=== PATIENT | male | born 1950 | race Caucasian/White ===

== ENCOUNTER 2016-08-23 14:16 | Inpatient (IN) | payer OTHER, MEDICARE ==
[~2016-08-23] VITALS: Ht 180.3 cm; Wt 85.9 kg
[2016-08-24] MEDS ORDERED: DOXA1TAB36 PO (08:23)
[2016-08-24] MEDS ORDERED: TIMO5SOL EACH EYE (08:23)
[2016-08-24] MEDS ORDERED: ALPH0.1S EACH EYE (08:23)
[2016-08-24] MEDS ORDERED: LATA0.002 EACH EYE (08:23)
[2016-08-26] VITALS (7 sets, daily range): BP systolic 127–144; BP diastolic 68–75; PULSE 66–76; RESP 16–18; TEMP 97.3–98.2; O2SAT 98–99
[2016-08-26] MEDS ORDERED: NEOSTIGMINE 3 MG/3 ML SYR IV ONE (12:00)
[2016-08-26] MEDS ORDERED: LACTATED RINGER'S 1000 ML INJ 1,000 ML IV ONE (12:00)
[2016-08-26] MEDS ORDERED: ONDANSETRON HCL 4 MG/2 ML VIAL IV PUSH ONE (12:00)
[2016-08-26] MEDS ORDERED: PROPOFOL 200 MG/20 ML AMP IV ONE (12:00)
[2016-08-26] MEDS ORDERED: ALVIMOPAN 12 MG CAPSULE - On Call PO SCH (12:45)
[2016-08-26] MEDS ORDERED: METRONIDAZOLE 500 MG/100 ML ISONTONIC SOLN IV SCH (12:45)
[2016-08-26] MEDS ORDERED: INSULIN HUMAN REGULAR 1,000 UNITS/10 ML VIAL SQ PRN (12:45)
[2016-08-26] MEDS ORDERED: METOPROLOL TARTRATE 25 MG TAB PO PRN (12:45)
[2016-08-26] MEDS ORDERED: CHLORHEXIDINE GLUCONATE 2 % 1 PACK (2 CLOTHS) TOPICAL PRN (12:45)
[2016-08-26] MEDS ORDERED: SODIUM CHLORID 0.9% 500 ML IV PRN (12:45)
[2016-08-26] MEDS ORDERED: LACTATED RINGER'S 1000 ML IV PRN (12:45)
[2016-08-26] MEDS ORDERED: ceFAZolin 1,000 MG/NS 100 ML IV SCH ×2 (12:45)
[2016-08-26] MEDS ORDERED: POVIDONE IODINE 5% (ANTISEPSIS KIT) 4 APPLICATIONS EACH NARE PRN (12:45)
[2016-08-26] MEDS ORDERED: ACETAMINOPHEN 1000 MG/100 ML VIAL IV ONE (13:26)
[2016-08-26] MEDS ORDERED: FAMOTIDINE 20 MG/2 ML VIAL ONE (13:26)
[2016-08-26] MEDS ORDERED: fentaNYL CITRATE 250 MCG/5 ML AMP ONE ×2 (13:27→15:54)
[2016-08-26] MEDS ORDERED: MIDAZOLAM HCL 2 MG/2 ML VIAL ONE (13:27)
[2016-08-26] MEDS ORDERED: HYDROmorphone HCL PF 2 MG/ML VIAL ONE (13:27)
[2016-08-26] MEDS ORDERED: RESP: ALBUTEROL 2.5 MG/3 ML NEB (SCH) ONE (13:43)
[2016-08-26] MEDS ORDERED: SUGAMMADEX SODIUM 200 MG/2 ML VIAL IV PUSH ONE ×2 (14:58)
[2016-08-26] MEDS ORDERED: *morphine SULFATE 8 MG/ML PERIprocedure ONLY ONE (15:53)
[2016-08-26] MEDS: D5-LR + KCL 20 MEQ INJ 1,000 ML IV SCH ×2 (15:56→21:06)
[2016-08-26] MEDS ORDERED: NALOXONE HCL 0.4 MG/ML AMP IV PRN (16:00)
[2016-08-26] MEDS ORDERED: ONDANSETRON HCL 4 MG/2 ML VIAL IV PRN (16:00)
[2016-08-26] MEDS: PCA - TOTAL MG MORPHINE DELIVERED PER SHIFT SCH ×2 (16:00→21:46)
[2016-08-26] MEDS ORDERED: ACETAMINOPHEN/HYDROcodone 325 MG/5 MG TAB PO PRN (16:00)
[2016-08-26] MEDS ORDERED: Post-op Orders (for Pharmacy) MISC XX ONE (16:00)
[2016-08-26] MEDS ORDERED: SODIUM CHLORIDE 0.9% FLUSH 10 ML FLUSH IV FLUSH PRN (16:00)
[2016-08-26] MEDS ORDERED: ENALAPRILAT 1.25 MG/ML VIAL IV PRN (16:00)
[2016-08-26] MEDS ORDERED: ZOLPIDEM TARTRATE 5 MG TAB PO PRN (16:00)
[2016-08-26] MEDS ORDERED: POTASSIUM CHLOR 40 MEQ PREMIX 100 ML IV PRN (16:00)
[2016-08-26] MEDS ORDERED: BENZOCAINE 6 MG/MENTHOL 10 MG LOZENGE BUCCAL PRN (16:00)
[2016-08-26] MEDS ORDERED: POTASSIUM CHLOR 20 MEQ PREMIX 100 ML IV PRN (16:00)
[2016-08-26] MEDS: MORPHINE SULFATE 30 MG/30 ML PCA IV SCH ×2 (16:16→23:51)
[2016-08-26] MEDS: ceFAZolin 2 GM PREMIX 50 ML IV SCH (16:39)
[2016-08-26] MEDS: KETOROLAC TROMETHAMINE 30 MG/ML (IVP) VIAL IVP PRN (16:49)
[2016-08-26 16:53] LABS: AUTOMATED NEUTROPHIL # 19.2 TH/MM3 (1.8-7.7); BASOPHIL # 0.1 TH/MM3 (0-0.2); BASOPHIL % 0.5 % (0.0-2.0); EOSINOPHIL # 0.2 TH/MM3 (0-0.4); HEMATOCRIT 40.3 % (39.0-51.0); HEMO FLAGS DIFF FINAL; LYMPH % 3.9 % (9.0-44.0); LYMPHOCYTE # 0.8 TH/MM3 (1.0-4.8); MEAN CELL VOLUME 92.1 FL (80.0-100.0); MEAN CORPUSCULAR HEMOGLOBIN 30.8 PG (27.0-34.0); MEAN CORPUSCULAR HGB CONC 33.4 % (32.0-36.0); MONO % 2.1 % (0.0-8.0); NEUT % 92.5 % (16.0-70.0); PLATELET COUNT 271 TH/MM3 (150-450); RED BLOOD COUNT 4.38 MIL/MM3 (4.50-5.90); RED CELL DISTRIBUTION WIDTH 14.6 % (11.6-17.2); WHITE BLOOD COUNT 20.7 TH/MM3 (4.0-11.0)
[2016-08-26 17:16] LABS: BICARBONATE 23.7 MEQ/L (21.0-32.0)
[2016-08-26] MEDS: METOCLOPRAMIDE HCL 10 MG/2 ML VIAL IVS SCH (17:47)
[2016-08-26] MEDS: DEXT 5%-NACL 0.9% 1000 ML INJ 1,000 ML IV SCH (17:51)
[2016-08-26] MEDS: SODIUM CHLORIDE 0.9% FLUSH 10 ML FLUSH IV FLUSH SCH (21:00)
[2016-08-26] MEDS: BRIMONIDINE TARTRATE 0.15% OPHT SOLN 5 ML BTL EACH EYE SCH (21:00)
[2016-08-26] MEDS: TIMOLOL MALEATE 0.25% OPHT SOLN 5 ML BTL EACH EYE SCH (21:00)
[2016-08-26] MEDS: LATANOPROST 0.005% OPHT SOLN 2.5 ML BTL EACH EYE SCH (21:00)
[2016-08-26] MEDS: DOXAZOSIN MESYLATE 1 MG TAB PO SCH (21:05)
[2016-08-26] MEDS: FUROSEMIDE 20 MG/2 ML VIAL IV SCH (21:06)
[2016-08-26] MEDS: metroNIDAZOLE 500 MG INJ 100 ML IV SCH (21:07)
[2016-08-27] VITALS (21 sets, daily range): BP systolic 107–137; BP diastolic 48–78; PULSE 60–82; RESP 14–18; TEMP 97.8–98.5; O2SAT 92–99
[2016-08-27] MEDS: KETOROLAC TROMETHAMINE 30 MG/ML (IVP) VIAL IVP PRN ×3 (01:10→11:23)
[2016-08-27] MEDS: METOCLOPRAMIDE HCL 10 MG/2 ML VIAL IVS SCH ×5 (01:11→23:13)
[2016-08-27] MEDS: ceFAZolin 2 GM PREMIX 50 ML IV SCH ×2 (01:11→08:25)
[2016-08-27] MEDS: DEXT 5%-NACL 0.9% 1000 ML INJ 1,000 ML IV SCH ×4 (04:17→17:54)
[2016-08-27] MEDS: D5-LR + KCL 20 MEQ INJ 1,000 ML IV SCH ×2 (05:48→10:22)
[2016-08-27] MEDS: metroNIDAZOLE 500 MG INJ 100 ML IV SCH ×2 (05:48→11:23)
[2016-08-27] MEDS: PCA - TOTAL MG MORPHINE DELIVERED PER SHIFT SCH ×3 (05:55→23:30)
[2016-08-27 06:58] LABS: AUTOMATED NEUTROPHIL # 11.6 TH/MM3 (1.8-7.7); BASOPHIL # 0.1 TH/MM3 (0-0.2); BASOPHIL % 0.7 % (0.0-2.0); HEMO FLAGS DIFF FINAL; LYMPH % 8.3 % (9.0-44.0); LYMPHOCYTE # 1.2 TH/MM3 (1.0-4.8); MEAN CELL VOLUME 92.1 FL (80.0-100.0); MEAN CORPUSCULAR HEMOGLOBIN 31.5 PG (27.0-34.0); MEAN CORPUSCULAR HGB CONC 34.2 % (32.0-36.0); MONO % 9.8 % (0.0-8.0); NEUT % 81.2 % (16.0-70.0); PLATELET COUNT 251 TH/MM3 (150-450); RED BLOOD COUNT 4.02 MIL/MM3 (4.50-5.90); RED CELL DISTRIBUTION WIDTH 14.6 % (11.6-17.2); WHITE BLOOD COUNT 14.2 TH/MM3 (4.0-11.0)
[2016-08-27 07:27] LABS: BICARBONATE 25.3 MEQ/L (21.0-32.0); POTASSIUM 3.9 MEQ/L (3.5-5.1)
[2016-08-27] MEDS: TIMOLOL MALEATE 0.25% OPHT SOLN 5 ML BTL EACH EYE SCH ×2 (08:18→21:00)
[2016-08-27] MEDS: BRIMONIDINE TARTRATE 0.15% OPHT SOLN 5 ML BTL EACH EYE SCH ×2 (08:18→21:00)
[2016-08-27] MEDS: ALVIMOPAN 12 MG CAPSULE - Post-op dosing PO SCH ×2 (08:24→21:00)
[2016-08-27] MEDS: PANTOPRAZOLE SODIUM 40 MG VIAL IVP SCH (08:24)
[2016-08-27] MEDS: FUROSEMIDE 20 MG/2 ML VIAL IV SCH ×2 (08:24→21:48)
[2016-08-27] MEDS: SODIUM CHLORIDE 0.9% FLUSH 10 ML FLUSH IV FLUSH SCH ×2 (08:25→21:45)
[2016-08-27] MEDS: ACETAMINOPHEN/HYDROcodone 325 MG/5 MG TAB PO PRN ×2 (08:25→21:46)
--- NOTE | 2016-08-27 15:19 | HHI.PR ---
Subjective Remarks No N or V. Pain controlled. Objective Vital Signs Date Time Temp Pulse Resp B/P Pulse Ox O2 Delivery O2 Flow Rate FiO2 08/27/16 12:58 20 08/27/16 12:24 16 08/27/16 12:00 67 08/27/16 12:00 98.2 64 16 137/67 99 08/27/16 11:00 82 08/27/16 10:00 68 08/27/16 09:17 16 08/27/16 09:00 62 08/27/16 08:11 99 Nasal Cannula 1.00 08/27/16 08:00 63 08/27/16 08:00 97.8 78 18 130/77 98 08/27/16 07:00 60 08/27/16 06:00 66 08/27/16 05:55 18 08/27/16 05:00 68 08/27/16 04:30 98.5 77 133/78 98 08/27/16 04:00 66 08/27/16 03:00 65 08/27/16 02:00 68 08/27/16 01:28 16 08/27/16 01:00 70 08/27/16 00:00 98.3 69 136/76 98 08/27/16 00:00 74 08/26/16 23:51 18 08/26/16 23:00 70 08/26/16 22:00 68 08/26/16 21:46 18 08/26/16 21:00 66 08/26/16 20:00 72 08/26/16 20:00 97.3 72 139/75 98 08/26/16 19:00 72 08/26/16 18:00 76 08/26/16 18:00 98.2 74 16 144/68 98 08/26/16 18:00 75 08/26/16 17:30 98.3 75 13 137/77 97 Nasal Cannula 2 08/26/16 17:00 71 12 145/79 97 Nasal Cannula 2 08/26/16 16:45 73 12 137/77 97 Nasal Cannula 2 08/26/16 16:30 75 14 155/81 97 Nasal Cannula 2 08/26/16 16:16 15 08/26/16 16:15 70 12 158/80 98 Nasal Cannula 2 08/26/16 16:00 77 15 158/83 98 Nasal Cannula 2 08/26/16 15:45 79 20 173/88 99 Nasal Cannula 2 08/26/16 15:41 98.0 76 15 174/90 100 Nasal Cannula 2 I/O 08/26/16 08/26/16 08/26/16 08/27/16 08/27/16 08/27/16 07:00 15:00 23:00 07:00 15:00 23:00 Intake Total 1400 ml 240 ml Output Total 575 ml 1000 ml Balance 825 ml -760 ml Intake Oral 240 ml Other 1400 ml Output Urine Total 75 ml 1000 ml Drainage Total 150 ml Estimated Blood Loss 100 ml Other 250 ml Result Diagram: 08/27/16 0625 08/27/1625 Objective Remarks VS-S Abd: flat,binder in place-cut to fit better I&Os- OK Labs- OK Assessment and Plan Assessment and Plan Stable POD#1 Started CLD. FLD ordered for tomorrow. D/C chávez tomorrow. Remove dressing tomorrow.Transfer to [address] [place] [address]. D/C tele. D/C dressing and RODBUSTER tomorrow. Te Newman MD Aug 27, 2016 15:19
[2016-08-27] MEDS: LATANOPROST 0.005% OPHT SOLN 2.5 ML BTL EACH EYE SCH (21:00)
[2016-08-27] MEDS: DOXAZOSIN MESYLATE 1 MG TAB PO SCH (21:45)
[2016-08-27] MEDS: ALVIMOPAN 12 MG CAPSULE PO SCH (21:47)
[2016-08-27] MEDS: MORPHINE SULFATE 30 MG/30 ML PCA IV SCH (23:16)
[2016-08-28] VITALS: BP 133/73; PULSE 69; RESP 20; TEMP 97.3; O2SAT 94
[2016-08-28 04:00] VITALS: BP 141/82; PULSE 60; RESP 20; TEMP 97.5; O2SAT 95
[2016-08-28] MEDS: DEXT 5%-NACL 0.9% 1000 ML INJ 1,000 ML IV SCH ×3 (04:45→20:45)
[2016-08-28] MEDS: PCA - TOTAL MG MORPHINE DELIVERED PER SHIFT SCH (06:00)
[2016-08-28] MEDS: METOCLOPRAMIDE HCL 10 MG/2 ML VIAL IVS SCH ×3 (06:30→17:38)
[2016-08-28 07:01] LABS: AUTOMATED NEUTROPHIL # 6.9 TH/MM3 (1.8-7.7); BASOPHIL # 0.1 TH/MM3 (0-0.2); EOSINOPHIL # 0.2 TH/MM3 (0-0.4); EOSINOPHIL % 1.6 % (0.0-4.0); HEMATOCRIT 34.6 % (39.0-51.0); HEMO FLAGS DIFF FINAL; LYMPH % 18.6 % (9.0-44.0); LYMPHOCYTE # 1.9 TH/MM3 (1.0-4.8); MEAN CELL VOLUME 92.7 FL (80.0-100.0); MEAN CORPUSCULAR HEMOGLOBIN 31.2 PG (27.0-34.0); MEAN CORPUSCULAR HGB CONC 33.7 % (32.0-36.0); MONO % 9.7 % (0.0-8.0); NEUT % 69.1 % (16.0-70.0); PLATELET COUNT 225 TH/MM3 (150-450); RED BLOOD COUNT 3.73 MIL/MM3 (4.50-5.90); RED CELL DISTRIBUTION WIDTH 14.9 % (11.6-17.2)
[2016-08-28 07:12] LABS: BICARBONATE 28.1 MEQ/L (21.0-32.0); POTASSIUM 4.1 MEQ/L (3.5-5.1)
[2016-08-28] MEDS: PANTOPRAZOLE SODIUM 40 MG VIAL IVP SCH (07:27)
[2016-08-28] MEDS: D5-LR + KCL 20 MEQ INJ 1,000 ML IV SCH ×2 (07:27→17:39)
[2016-08-28] MEDS: ALVIMOPAN 12 MG CAPSULE - Post-op dosing PO SCH ×2 (07:28→21:00)
[2016-08-28] MEDS: ALVIMOPAN 12 MG CAPSULE PO SCH ×2 (07:28→22:10)
[2016-08-28] MEDS: FUROSEMIDE 20 MG/2 ML VIAL IV SCH ×2 (07:28→22:10)
[2016-08-28] MEDS: ACETAMINOPHEN/HYDROcodone 325 MG/5 MG TAB PO PRN ×4 (07:28→22:08)
[2016-08-28] MEDS: SODIUM CHLORIDE 0.9% FLUSH 10 ML FLUSH IV FLUSH SCH ×2 (07:29→21:00)
[2016-08-28] MEDS: BRIMONIDINE TARTRATE 0.15% OPHT SOLN 5 ML BTL EACH EYE SCH ×2 (07:30→21:00)
[2016-08-28] MEDS: TIMOLOL MALEATE 0.25% OPHT SOLN 5 ML BTL EACH EYE SCH ×2 (07:30→21:00)
[2016-08-28 08:00] VITALS: BP 160/77; PULSE 68; RESP 17; TEMP 97; O2SAT 94
[2016-08-28 12:00] VITALS: BP 125/70; PULSE 56; RESP 17; TEMP 97.4; O2SAT 96
--- NOTE | 2016-08-28 12:52 | HHI.PR ---
Subjective Remarks POD#2 s/p sigmoid colectomy Comfortable Objective Vital Signs Date Time Temp Pulse Resp B/P Pulse Ox O2 Delivery O2 Flow Rate FiO2 08/28/16 12:00 97.4 56 17 125/70 96 08/28/16 08:00 97.0 68 17 160/77 94 08/28/16 06:00 16 08/28/16 04:00 97.5 60 20 141/82 95 08/28/16 00:00 97.3 69 20 133/73 94 08/27/16 23:30 14 08/27/16 23:16 14 08/27/16 23:00 98.5 69 14 107/69 92 08/27/16 19:00 98.4 65 14 118/70 97 08/27/16 16:00 97.9 65 16 112/48 97 08/27/16 16:00 61 08/27/16 15:00 72 08/27/16 14:00 64 08/27/16 13:00 80 08/27/16 12:58 20 I/O 08/27/16 08/27/16 08/27/16 08/28/16 08/28/16 08/28/16 07:00 15:00 23:00 07:00 15:00 23:00 Intake Total 240 ml 2441 ml 967 ml Output Total 1000 ml 780 ml 650 ml Balance -760 ml 1661 ml 317 ml Intake Oral 240 ml 1420 ml 120 ml IV Total 1021 ml 847 ml Output Urine Total 1000 ml 720 ml 600 ml Drainage Total 60 ml 50 ml # Bowel Movements 0 Result Diagram: 08/28/16 0520 08/28/16 0520 Objective Remarks Abdomen soft, nondistended, tender MILAGROS serosanguinous Assessment and Plan Assessment and Plan Doing well Mobilize Advance diet, decrease IVF Chantel Ballard MD Aug 28, 2016 12:52
[2016-08-28 20:00] VITALS: BP 139/76; PULSE 59; RESP 20; TEMP 97.2; O2SAT 97
[2016-08-28] MEDS: LATANOPROST 0.005% OPHT SOLN 2.5 ML BTL EACH EYE SCH (21:00)
[2016-08-28] MEDS: DOXAZOSIN MESYLATE 1 MG TAB PO SCH (22:09)
[2016-08-29] VITALS: BP 126/66; PULSE 59; RESP 20; TEMP 96.9; O2SAT 95
[2016-08-29] MEDS: D5-LR + KCL 20 MEQ INJ 1,000 ML IV SCH (01:16)
[2016-08-29] MEDS: DEXT 5%-NACL 0.9% 1000 ML INJ 1,000 ML IV SCH ×3 (04:45→20:45)
--- NOTE | 2016-08-29 05:41 | MP ---
cc: TAVON LIAO,ANDREW VAZQUEZ,RAMAN TUBBS D.O. DATE OF SURGERY: 08/26/2016 PREOPERATIVE DIAGNOSIS Sigmoid colon carcinoma. POSTOPERATIVE DIAGNOSIS Sigmoid colon carcinoma. PROCEDURE Sigmoid colectomy low anterior resection. ANESTHESIA General endotracheal anesthesia. SURGEON Dr. Newman. MANAGER BUILDING Dr. Winn. ESTIMATED BLOOD LOSS 25 cc OPERATING TIME One hour, five minutes. OPERATIVE FINDINGS This patient was found to have a sigmoid colon carcinoma on colonoscopy by Dr. Tavon Liao. At surgery exploration of the abdominal cavity revealed that there were some adhesions of the upper abdomen consistent with his previous surgery for patch of a perforated duodenal ulcer. The liver was palpably normal and so was the gallbladder. The stomach that could be palpated was normal. There was omentum that was stuck to the anterior abdominal wall that was taken down and omentum stuck up near the duodenum from the previous Ethan patch. The remainder of the colon was palpably normal as was the small bowel. The carcinoma was located in the sigmoid colon. His sigmoid was very redundant and we did not need to mobilize the splenic flexure. A sigmoid colectomy was done with a colorectal anastomosis to the top of the rectum. OPERATIVE TECHNIQUE The patient was placed on the table in the supine position after adequate general endotracheal anesthesia. The abdomen was prepped and draped in the usual manner and a transverse infraumbilical skin incision was made and carried down through the subcutaneous tissue and rectus muscles were divided with electrocautery. The peritoneal cavity was entered with the above-mentioned findings. Our attention was turned to the sigmoid colon. It was mobilized along its peritoneal reflection up to but not including the splenic flexure. The left ureter was identified and protected at all times. Next the superior hemorrhoidal vessels were doubly clamped, cut and doubly ligated with 0 Vicryl ligature. Once this was done the retrorectal space was entered and lateral pelvic peritoneum was incised bilaterally. The dissection posteriorly was taken down to the lower third of the rectum and the upper middle portion of the rectum were mobilized. The cul-de-sac anterior to the rectum and posterior to the prostate was not mobilized. Next the upper rectum, mesorectum was clamped, cut and ligated and the upper rectum was cleared of the mesorectum with electrocautery. Next the pursestring stapling device was placed in the rectum and the rectum was divided. A point for division was chosen in the sigmoid colon and the remainder of the sigmoid vessels and the inferior mesenteric vein was clamped, cut and ligated clearing the mesentery from the sigmoid colon. Again the pursestring stapling device was applied and the bowel was divided and the specimen was removed from the table and opened identifying the lesion. Next the anvil of the Ethicon 33 EEA instrument was placed in the proximal bowel and the pursestring was tied. Dr. Winn then went below and placed the EEA instrument transanally and the distal pursestring was tied and the instrument was connected, closed and fired creating a circular anastomosis. Dr. Winn then did a proctosigmoidoscopy examination insufflating air into the rectum with saline solution and the pelvis and no air leaks were identified. The blood supply was excellent and there was no tension on the anastomosis. Next the pelvis and abdomen were irrigated thoroughly with 3 liters of saline solution, aspirated dry, and then a #10 flat Mahesh drain was placed through a right lower quadrant stab wound into the retrorectal space. The abdomen was inspected for hemostasis throughout and controlled with electrocautery and ligature. The bowels were replaced in the abdominal cavity in an manager telemarketing manner and the abdominal cavity was then closed in layers using a double-stranded #1 PDS for the posterior rectus sheath and a double-stranded #1 PDS for the anterior rectus sheath and the subcutaneous tissue was irrigated thoroughly with saline solution, aspirated dry. The skin was closed with running 3-0 Vicryl subcuticular suture and dressing was applied. Sponge, needle and instrument counts were reported as correct. Estimated blood loss was 25 cc. Operating time was one hour and five minutes. The patient tolerated the procedure well and left the operating room in good condition. MD NUBIA Mathew/ARNOL /4:06 PM /4:04 AM
[2016-08-29] MEDS: METOCLOPRAMIDE HCL 10 MG/2 ML VIAL IVS SCH ×4 (06:00→18:03)
[2016-08-29] MEDS: ACETAMINOPHEN/HYDROcodone 325 MG/5 MG TAB PO PRN ×4 (06:31→21:51)
[2016-08-29 08:00] VITALS: BP 143/78; PULSE 62; RESP 17; TEMP 97.4; O2SAT 96
[2016-08-29] MEDS: FUROSEMIDE 20 MG/2 ML VIAL IV SCH (08:00)
[2016-08-29] MEDS: TIMOLOL MALEATE 0.25% OPHT SOLN 5 ML BTL EACH EYE SCH ×2 (08:00→21:00)
[2016-08-29] MEDS: ALVIMOPAN 12 MG CAPSULE - Post-op dosing PO SCH ×2 (08:00→21:00)
[2016-08-29] MEDS: BRIMONIDINE TARTRATE 0.15% OPHT SOLN 5 ML BTL EACH EYE SCH ×2 (08:00→21:00)
[2016-08-29] MEDS: ALVIMOPAN 12 MG CAPSULE PO SCH ×2 (08:00→21:51)
[2016-08-29] MEDS: PANTOPRAZOLE SODIUM 40 MG VIAL IVP SCH (08:00)
[2016-08-29] MEDS: SODIUM CHLORIDE 0.9% FLUSH 10 ML FLUSH IV FLUSH SCH ×2 (08:00→21:00)
--- NOTE | 2016-08-29 11:54 | HHI.PR ---
Subjective Remarks POD#3 s/p sigmoid colectomy Comfortable Objective Vital Signs Date Time Temp Pulse Resp B/P Pulse Ox O2 Delivery O2 Flow Rate FiO2 08/29/16 08:00 97.4 62 17 143/78 96 08/29/16 00:00 96.9 59 20 126/66 95 08/28/16 20:00 97.2 59 20 139/76 97 08/28/16 12:00 97.4 56 17 125/70 96 I/O 08/28/16 08/28/16 08/28/16 08/29/16 08/29/16 08/29/16 07:00 15:00 23:00 07:00 15:00 23:00 Intake Total 967 ml 1237 ml 930 ml 997 ml Output Total 650 ml 1150 ml 400 ml 2150 ml Balance 317 ml 87 ml 530 ml -1153 ml Intake Oral 120 ml 360 ml 360 ml 240 ml IV Total 847 ml 877 ml 570 ml 757 ml Output Urine Total 600 ml 1100 ml 400 ml 2150 ml Drainage Total 50 ml 50 ml # Bowel Movements 0 Result Diagram: 08/28/16 0520 08/28/16 0520 Objective Remarks Abdomen soft, nondistended, tender Wound clean MILAGROS serosanguinous Assessment and Plan Assessment and Plan Doing well Mobilize HL IV D/C MILAGROS Advance diet Chantel Ballard MD Aug 29, 2016 11:53
[2016-08-29 12:00] VITALS: BP 139/76; PULSE 64; RESP 18; TEMP 98.5; O2SAT 96
[2016-08-29 16:00] VITALS: BP 141/75; PULSE 63; RESP 17; TEMP 96.4; O2SAT 97
[2016-08-29 20:00] VITALS: BP 139/71; PULSE 63; RESP 20; TEMP 96.6; O2SAT 98
[2016-08-29] MEDS: LATANOPROST 0.005% OPHT SOLN 2.5 ML BTL EACH EYE SCH (21:00)
[2016-08-29] MEDS: DOXAZOSIN MESYLATE 1 MG TAB PO SCH (21:51)
[2016-08-30] VITALS: BP 134/69; PULSE 68; RESP 20; TEMP 97.2; O2SAT 97
[2016-08-30] MEDS: DEXT 5%-NACL 0.9% 1000 ML INJ 1,000 ML IV SCH (04:45)
[2016-08-30] MEDS: METOCLOPRAMIDE HCL 10 MG/2 ML VIAL IVS SCH ×2 (06:00)
[2016-08-30 08:00] VITALS: BP 124/77; PULSE 74; RESP 17; TEMP 95.9; O2SAT 94
[2016-08-30] MEDS: PANTOPRAZOLE SODIUM 40 MG VIAL IVP SCH (08:33)
[2016-08-30] MEDS: BRIMONIDINE TARTRATE 0.15% OPHT SOLN 5 ML BTL EACH EYE SCH (08:33)
[2016-08-30] MEDS: ACETAMINOPHEN/HYDROcodone 325 MG/5 MG TAB PO PRN (08:33)
[2016-08-30] MEDS: SODIUM CHLORIDE 0.9% FLUSH 10 ML FLUSH IV FLUSH SCH (08:33)
[2016-08-30] MEDS: ALVIMOPAN 12 MG CAPSULE PO SCH (08:33)
[2016-08-30] MEDS: TIMOLOL MALEATE 0.25% OPHT SOLN 5 ML BTL EACH EYE SCH (08:34)
[2016-08-30] MEDS: ALVIMOPAN 12 MG CAPSULE - Post-op dosing PO SCH (08:34)
--- NOTE | 2016-08-30 09:38 | HHI.DCPOC ---
Discharge Care Plan Diagnosis: (1) Cancer, colon (2) Status post partial resection of colon Your Health Problems Are: Incision/Drains Appetite Changes Irregular Bowel Function Exercise Tolerance Goals to Promote Your Health * To prevent worsening of your condition and complications * To maintain your health at the optimal level Directions to Meet Your Goals Take your medications as prescribed Follow your dietary instruction Follow activity as directed Keep your appointments as scheduled Take your immunizations and boosters as scheduled If your symptoms worsen call your PCP, if no PCP go to Urgent Care Center or Emergency Room Smoking is Dangerous to Your Health. Avoid second hand smoke Call the 24-hour hour crisis hotline for domestic abuse at Te Newman MD August 30, 2016 09:38
[2016-08-30] MEDS ORDERED: NORC5TAB PO (09:53)
--- NOTE | 2016-10-13 07:52 | MD ---
cc: ELLEN BLAIR M.D. ADMISSION DATE: 08/26/2016 DISCHARGE DATE: 08/30/2016 ADMISSION DIAGNOSIS Sigmoid colon carcinoma. DISCHARGE DIAGNOSIS Sigmoid colon carcinoma. PROCEDURE 08/26/2016 sigmoid colectomy with low anterior resection. HISTORY This patient was found to have a sigmoid colon carcinoma on colonoscopy by Dr. Tavon Liao. For this reason, surgery was recommended. 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 There was a low grade moderately differentiated tumor. The tumor invaded into the muscularis propria. All margins were uninvolved. The lesion was a T2, N0 lesion. 12 nodes were examined. HOSPITAL COURSE The patient was admitted to the hospital on 08/26/2016 and underwent a sigmoid colectomy. Postoperatively did well. On the first postoperative day, he was started on a clear liquid diet. On the second postoperative day, he was started on a full liquid diet and on the third postoperative day, he was started on a regular diet. He was discharged from the hospital on postoperative day number four in good condition. He was instructed to do no driving for two weeks. Do no heavy lifting for six weeks and to call me with any problems. He was instructed to follow up with me in the office in two weeks time. MD NUBIA Mathew/SHANNEN /9:14 PM /7:49 AM
== END 2016-08-30 10:42 | disposition home or self-care (01) | DRG 331 ==
LOC: HSDI 08-26 11:23 → HCIS 08-26 17:47 → N07A 08-27 23:54
PROVIDERS: ADMIT Colon & Rectal Surgery; ATTEND Colon & Rectal Surgery
PROC: 0DTN0ZZ Resection of Sigmoid Colon, Open Approach (ICD-10-PCS; principal; 2016-08-26 13:47)
DX: C18.7 Malignant neoplasm of sigmoid colon (principal); F17.210 Nicotine dependence, cigarettes, uncomplicated
CPT/HCPCS: 71020; 80048; 80053; 81001; 82378; 85025; 85610; 85730; 86850; 86900; 86901; 88309; 93005; 94150; C9113; J0131; J0690; J1170; J1885; J1940; J2250; J2270; J2405; J2710; J2765; J3010; J3480; J7042; J7120; J7613

== ENCOUNTER → 2016-08-24 | Outpatient (CLI) | payer OTHER ==
[~2016-08-24] MED LIST: ALPH0.1S EACH EYE; DOXA1TAB36 PO; LATA0.002 EACH EYE; NORC5TAB PO; TIMO5SOL EACH EYE
[2016-08-24 08:51] LABS: AUTOMATED NEUTROPHIL # 4.8 TH/MM3 (1.8-7.7); BASOPHIL # 0.1 TH/MM3 (0-0.2); BASOPHIL % 1.3 % (0.0-2.0); EOSINOPHIL # 0.3 TH/MM3 (0-0.4); EOSINOPHIL % 4.6 % (0.0-4.0); HEMATOCRIT 39.7 % (39.0-51.0); HEMO FLAGS DIFF FINAL; LYMPHOCYTE # 1.6 TH/MM3 (1.0-4.8); MEAN CELL VOLUME 91.7 FL (80.0-100.0); MEAN CORPUSCULAR HEMOGLOBIN 31.5 PG (27.0-34.0); MEAN CORPUSCULAR HGB CONC 34.4 % (32.0-36.0); MONO % 8.2 % (0.0-8.0); NEUT % 64.9 % (16.0-70.0); PLATELET COUNT 282 TH/MM3 (150-450); RED BLOOD COUNT 4.33 MIL/MM3 (4.50-5.90); WHITE BLOOD COUNT 7.4 TH/MM3 (4.0-11.0)
--- NOTE | 2016-08-24 09:00 | RADRPT ---
EXAM DATE/TIME: 08/24/2016 08:43 [place] COMPARISON: No previous studies available for comparison. INDICATIONS : Evaluate for pneumonia, pneumothorax or communicable disease. Pre op colectomy. MEDICAL HISTORY : Chronic obstructive pulmonary disease. Smoker SURGICAL HISTORY : None. ENCOUNTER: Initial ACUITY: 1 day PAIN SCORE: 0/10 LOCATION: Bilateral chest FINDINGS: PA and lateral views of the chest demonstrate a normal-sized cardiac silhouette. Lungs are hyperinfla angie with flattening of the hemidiaphragms and an enlarged retrosternal airspace. No effusion, consoli dation, or pneumothorax is visualized. Bones and soft tissues demonstrate no acute finding. There are degenerative changes of the thoracic spine. CONCLUSION: Background lung changes characteristic of obstructive airways disease/emphysema. No acute cardiopulmo nary abnormality is identified. Te Sood MD on August 24, 2016 at 8:56 Board Certified Radiologist. This report was verified electronically.
[2016-08-24 09:02] LABS: APTT (PATIENT) 30.1 SEC (24.3-30.1); PROTHROMBIN TIME - PATIENT 10.5 SEC (9.8-11.6)
[2016-08-24 09:12] LABS: BLOOD, URINE NEG (NEG); COMMENT (UR) CULT NOT INDICATED; CULTURE IF INDICATED CULT NOT INDICATED; GLUCOSE,URINE NEG (NEG); KETONE, URINE NEG (NEG); MUCUS URINE FEW /lpf (OCC); NITRITE,URINE NEG (NEG); PH, URINE 6.5 (5.0-8.5); URINE COLOR LIGHT-YELLOW (YELLW/STRAW)
[2016-08-24 09:47] LABS: ANION GAP 9 MEQ/L (5-15); AST (GOT) 11 U/L (15-37); BICARBONATE 28.1 MEQ/L (21.0-32.0); BLOOD UREA NITROGEN 17 MG/DL (7-18); CHLORIDE 103 MEQ/L (98-107); GLOMERULAR FILTRATION RATE 77 ML/MIN (>89); GLUCOSE,FASTING 104 MG/DL (74-99); POTASSIUM 4.2 MEQ/L (3.5-5.1); SODIUM (NA) 140 MEQ/L (136-145)
[2016-08-24 09:50] LABS: ALKALINE PHOSPHATASE 49 U/L (45-117); ALT (GPT) 28 U/L (12-78); TOTAL BILIRUBIN ADULT 0.4 MG/DL (0.2-1.0)
--- NOTE | 2016-08-25 10:37 | EKG ---
Date Performed: 08/24/2016 Time Performed: 08:11:59 PTAGE: 66 years EKG: Sinus rhythm NORMAL ECG NO PREVIOUS TRACING DOCTOR: Devi Keith Interpretating Date/Time 08/25/2016 10:36:39
== END ==
LOC: CPRE 07:40
PROVIDERS: ATTEND Colon & Rectal Surgery
DX: Z01.810 Encounter for preprocedural cardiovascular examination (principal); C18.7 Malignant neoplasm of sigmoid colon; Z01.812 Encounter for preprocedural laboratory examination; Z01.818 Encounter for other preprocedural examination
CPT/HCPCS: 71020; 80053; 81001; 82378; 85025; 85610; 85730; 86850; 86900; 86901; 93005